=== PATIENT | female | born 1980 | race American Indian/Alaskan Native ===

== ENCOUNTER 2018-10-06 12:00 | Emergency (ER) | payer SELFPAY ==
[~2018-10-06] VITALS: Ht 154.9 cm; Wt 61.4 kg
[2018-10-06 12:19] VITALS: BP 125/87
[2018-10-06] MEDS ORDERED: DOXY100C43 PO (13:16)
[2018-10-06] MEDS ORDERED: CEPH-572 PO (13:16)
== END 2018-10-06 13:32 | disposition home or self-care (01) ==
LOC: ER 12:02
DX: L03.012 Cellulitis of left finger (principal); R23.4 Changes in skin texture; Z79.2 Long term (current) use of antibiotics
CPT/HCPCS: 99283